=== PATIENT | female | born 1960 | race Caucasian/White ===

== ENCOUNTER 2024-05-08 15:04 | Inpatient (IN) | payer OTHER, MEDICAID ==
[~2024-05-08] VITALS: Ht 167.6 cm; Wt 112.9 kg
[2024-05-08 15:10] VITALS: BP 137/73; PULSE 70; RESP 20; TEMP 37.00296; O2SAT 95
[2024-05-08] MEDS ORDERED: CLOP-31 PO (16:11)
[2024-05-08] MEDS ORDERED: LEVE500T98 MT (16:11)
[2024-05-08] MEDS ORDERED: DOCU-138 MT (16:11)
[2024-05-08] MEDS ORDERED: AMLO5TAB4 MT (16:11)
[2024-05-08] MEDS ORDERED: SENN-362 MT (16:11)
[2024-05-08] MEDS ORDERED: HJ10 IJ (16:11)
[2024-05-08] MEDS ORDERED: ASPI-1497 PO (16:11)
[2024-05-08] MEDS ORDERED: ATOR-2 MT (16:11)
[2024-05-08] MEDS ORDERED: IPRATROPIUM/ALBUTEROL 0.5-3(2.5)MG/3ML NEB HHN PRN (16:15)
[2024-05-08] MEDS ORDERED: DOCUSATE SODIUM 100MG CAPSULE PO PRN (16:15)
[2024-05-08] MEDS ORDERED: DEXTROSE 50% WATER 50ML SYRINGE IV PRN (16:15)
[2024-05-08] MEDS ORDERED: SENNOSIDES 8.6MG TABLET PO PRN (16:15)
[2024-05-08] MEDS ORDERED: ONDANSETRON HCL 4MG/2ML INJ IV PRN (16:15)
[2024-05-08] MEDS ORDERED: CLONIDINE 0.1MG TABLET PO PRN (16:15)
[2024-05-08 16:48] VITALS: BP 137/73; PULSE 70; RESP 20; TEMP 37.0296
[2024-05-08] MEDS: INSULIN LISPRO 100 UNITS/ML SUBCUT SCH (17:00)
[2024-05-08] MEDS: BLOOD SUGAR DIAGNOSTIC STRIP TEST SCH (17:33)
[2024-05-08 20:00] VITALS: BP 136/83; PULSE 70; RESP 18; TEMP 37.00296; O2SAT 94
[2024-05-08] MEDS: LEVETIRACETAM 500MG TABLET PO SCH (21:18)
[2024-05-08] MEDS: ATORVASTATIN CALCIUM 40MG TABLET PO SCH (21:18)
[2024-05-09 06:49] LABS: CHLORIDE 106 mEq/L (98-107); POTASSIUM 3.8 mEq/L (3.5-5.1); SODIUM 140 mEq/L (136-145)
[2024-05-09 06:53] LABS: CALCIUM 9.1 mg/dL (8.7-10.4); CARBON DIOXIDE 24 mEq/L (21-32)
[2024-05-09 06:58] LABS: BASOPHILS % 0.7 % (0.0-2.0); CREATININE 0.7 mg/dL (0.6-1.0); GLUCOSE 113 mg/dL (70-105); HEMATOCRIT. 44.3 % (36.0-48.0); HEMOGLOBIN. 14.8 g/dL (12.0-16.0); LYMPHOCYTES % 24.1 % (20.0-50.0); MEAN CORPUSCULAR HEMOGLOBIN 27.8 pg (28.0-32.0); MEAN CORPUSCULAR HGB CONC 33.3 g/dL (31.0-37.0); MEAN CORPUSCULAR VOLUME 83.3 fL (81.0-99.0); MEAN PLATELET VOLUME 8.4 fl (7.4-10.4); MONOCYTES % 7.9 % (2.0-8.0); NEUTROPHILS % 63.3 % (40.0-76.0); PLATELET 298 x1000/uL (130-400); RED BLOOD CELL COUNT 5.32 mill/uL (4.2-5.4); RED CELL DISTRIBUTION WIDTH 13.5 % (11.6-14.6); UREA NITROGEN BLOOD 14 mg/dL (9-23); WHITE BLOOD COUNT 8.4 x1000/uL (4.5-11.0)
[2024-05-09 07:00] LABS: ALANINE AMINOTRANSFERASE 149 IU/L (10-49); ALBUMIN 3.9 g/dL (3.2-4.8); ASPARTATE AMINOTRANSFERASE 129 IU/L (<34); BILIRUBIN TOTAL 0.7 mg/dL (0.1-1.0); PREALBUMIN 12.4 mg/dl (10.0-40.0); PROTEIN TOTAL 6.7 g/dL (6.0-8.3)
[2024-05-09 08:00] VITALS: BP 139/65; PULSE 60; RESP 17; TEMP 36.114; O2SAT 96
[2024-05-09] MEDS: ASPIRIN 81MG EC TABLET PO SCH (08:03)
[2024-05-09] MEDS: AMLODIPINE 5MG TABLET PO SCH (08:04)
[2024-05-09] MEDS: CLOPIDOGREL 75MG TABLET PO SCH (08:04)
[2024-05-09 20:00] VITALS: BP 148/82; PULSE 70; RESP 19; TEMP 36.61404; O2SAT 96
[2024-05-10 08:00] VITALS: BP 132/70; PULSE 67; RESP 18; TEMP 36.22512; O2SAT 95
[2024-05-10] MEDS: SENNOSIDES 8.6MG TABLET PO SCH (18:57)
[2024-05-10 20:00] VITALS: BP 148/82; PULSE 68; RESP 20; TEMP 36.22512; O2SAT 95
[2024-05-10 23:22] LABS: CLARITY URINE CLEAR (CLEAR); COLOR URINE YELLOW (YELLOW); GLUCOSE URINE NEGATIVE (NEGATIVE); KETONES URINE NEGATIVE (NEGATIVE); LEUKOCYTE ESTERASE URINE NEGATIVE (NEGATIVE); NITRITE URINE NEGATIVE (NEGATIVE); OCCULT BLOOD URINE 2+ (NEGATIVE); PROTEIN URINE NEGATIVE (NEGATIVE); SPECIFIC GRAVITY URINE 1.021 (1.005-1.030)
[2024-05-10 23:55] LABS: BACTERIA URINE TRACE; SQUAMOUS EPITHELIAL CELL URINE FEW /lpf (RARE/1+); WBC URINE NONE SEEN /hpf (0-2)
[2024-05-11 07:34] LABS: CHLORIDE 106 mEq/L (98-107); SODIUM 138 mEq/L (136-145)
[2024-05-11 07:35] LABS: CALCIUM 9.1 mg/dL (8.7-10.4); CARBON DIOXIDE 25 mEq/L (21-32)
[2024-05-11 07:36] LABS: BASOPHILS % 0.7 % (0.0-2.0); EOSINOPHILS % 4.4 % (0.0-5.0); HEMATOCRIT. 42.9 % (36.0-48.0); LYMPHOCYTES % 22.5 % (20.0-50.0); MEAN CORPUSCULAR HEMOGLOBIN 27.6 pg (28.0-32.0); MEAN CORPUSCULAR HGB CONC 32.5 g/dL (31.0-37.0); MEAN PLATELET VOLUME 8.5 fl (7.4-10.4); MONOCYTES % 8.3 % (2.0-8.0); NEUTROPHILS % 64.1 % (40.0-76.0); PLATELET 305 x1000/uL (130-400); RED BLOOD CELL COUNT 5.05 mill/uL (4.2-5.4); RED CELL DISTRIBUTION WIDTH 13.9 % (11.6-14.6); WHITE BLOOD COUNT 9.4 x1000/uL (4.5-11.0)
[2024-05-11 07:40] LABS: CREATININE 0.7 mg/dL (0.6-1.0); GLUCOSE 114 mg/dL (70-105); IRON 62 ug/dL (50-170)
[2024-05-11 07:41] LABS: UREA NITROGEN BLOOD 13 mg/dL (9-23)
[2024-05-11 07:42] LABS: ALANINE AMINOTRANSFERASE 135 IU/L (10-49); ALBUMIN 3.9 g/dL (3.2-4.8); AMMONIA 24 uMol/L (<32); ASPARTATE AMINOTRANSFERASE 87 IU/L (<34); PROTEIN TOTAL 6.7 g/dL (6.0-8.3)
[2024-05-11 07:43] LABS: BILIRUBIN TOTAL 0.9 mg/dL (0.1-1.0); TOTAL IRON BINDING CAPACITY 176 ug/dl (250-425)
[2024-05-11 07:45] LABS: THYROID STIMULATING HORMONE 4.11 uIU/mL (0.55-4.78)
[2024-05-11 07:51] LABS: FERRITIN 429 ng/mL (10-291)
[2024-05-11 07:52] LABS: VITAMIN B12 SERUM 822 pg/mL (211-911)
[2024-05-11 07:55] LABS: FOLIC ACID (FOLATE) SERUM 19.02 ng/mL (>5.38)
[2024-05-11 08:00] VITALS: BP 124/80; PULSE 70; RESP 18; TEMP 36.6696; O2SAT 99
[2024-05-11 20:00] VITALS: BP 138/74; PULSE 67; RESP 19; TEMP 36.61404; O2SAT 94
[2024-05-12 08:00] VITALS: BP 131/72; PULSE 71; RESP 18; TEMP 36.6696; O2SAT 95
[2024-05-12 09:46] VITALS: BP 131/72; PULSE 71; RESP 18; TEMP 36.6696; O2SAT 95
[2024-05-12 20:00] VITALS: BP 138/77; PULSE 82; RESP 18; TEMP 36.61404; O2SAT 94
[2024-05-13 08:00] VITALS: BP 132/84; PULSE 73; RESP 18; TEMP 35.89176; O2SAT 98
[2024-05-13 20:00] VITALS: BP 146/65; PULSE 71; RESP 18; TEMP 36.6696; O2SAT 96
[2024-05-13] MEDS: ERGOCALCIFEROL 50000UNITS CAPSULE PO SCH (22:30)
[2024-05-13] MEDS: LACTULOSE 20G/30ML UDC PO SCH (22:31)
[2024-05-14 08:00] VITALS: BP 136/69; PULSE 69; RESP 18; TEMP 36.44736; O2SAT 95
[2024-05-14] MEDS: LACTULOSE 20G/30ML UDC PO PRN (17:48)
[2024-05-14 20:00] VITALS: BP 145/83; PULSE 75; RESP 18; TEMP 36.16956; O2SAT 95
[2024-05-15 08:00] VITALS: BP 142/84; PULSE 73; RESP 19; TEMP 36.3918; O2SAT 100
[2024-05-15 10:47] LABS: BASOPHILS % 0.3 % (0.0-2.0); HEMATOCRIT. 42.2 % (36.0-48.0); HEMOGLOBIN. 13.8 g/dL (12.0-16.0); LYMPHOCYTES % 14.5 % (20.0-50.0); MEAN CORPUSCULAR HEMOGLOBIN 27.5 pg (28.0-32.0); MEAN CORPUSCULAR HGB CONC 32.6 g/dL (31.0-37.0); MEAN CORPUSCULAR VOLUME 84.3 fL (81.0-99.0); MEAN PLATELET VOLUME 8.5 fl (7.4-10.4); MONOCYTES % 5.1 % (2.0-8.0); NEUTROPHILS % 77.1 % (40.0-76.0); PLATELET 404 x1000/uL (130-400); RED CELL DISTRIBUTION WIDTH 13.8 % (11.6-14.6); WHITE BLOOD COUNT 10.7 x1000/uL (4.5-11.0)
[2024-05-15 11:01] LABS: CHLORIDE 105 mEq/L (98-107); POTASSIUM 3.4 mEq/L (3.5-5.1); SODIUM 138 mEq/L (136-145)
[2024-05-15 11:02] LABS: CALCIUM 9.6 mg/dL (8.7-10.4); CARBON DIOXIDE 24 mEq/L (21-32)
[2024-05-15 11:07] LABS: CREATININE 0.7 mg/dL (0.6-1.0); GLUCOSE 179 mg/dL (70-105); UREA NITROGEN BLOOD 12 mg/dL (9-23)
[2024-05-15] MEDS: POTASSIUM CHLORIDE 20MEQ TABLET SR PO NR (13:20)
[2024-05-15] MEDS: BISACODYL 10MG SUPP PR NR (16:58)
[2024-05-15] MEDS: LACTULOSE 20G/30ML UDC PO SCH (16:58)
[2024-05-15] MEDS: MINERAL OIL ENEMA 133ML PR NR (17:00)
[2024-05-15 20:00] VITALS: BP_SYST 140; BP_SYST 156; BP_DIAS 79; BP_DIAS 86; PULSE 73; PULSE 84; RESP 17; RESP 18; TEMP 36.72516; TEMP 36.89184; O2SAT 95; O2SAT 96
[2024-05-16 08:00] VITALS: BP 133/82; PULSE 66; RESP 18; TEMP 36.16956; O2SAT 95
[2024-05-16 08:33] VITALS: BP 133/82; PULSE 66; RESP 18; TEMP 36.16956; O2SAT 95
[2024-05-16] MEDS: MINERAL OIL ENEMA 133ML PR NR (09:02)
[2024-05-16 16:28] LABS: CARBON DIOXIDE 25 mEq/L (21-32)
[2024-05-16 16:29] LABS: CALCIUM 9.4 mg/dL (8.7-10.4)
[2024-05-16 16:34] LABS: CREATININE 0.7 mg/dL (0.6-1.0); GLUCOSE 100 mg/dL (70-105); UREA NITROGEN BLOOD 10 mg/dL (9-23)
[2024-05-16 17:13] LABS: CHLORIDE 105 mEq/L (98-107); POTASSIUM 4.5 mEq/L (3.5-5.1); SODIUM 138 mEq/L (136-145)
[2024-05-16 20:00] VITALS: BP 91/45; PULSE 74; RESP 17; TEMP 36.61404; O2SAT 96
[2024-05-16] MEDS: POLYETHYLENE GLYCOL 3350 (17GM) 1 DOSE PACK PO SCH (20:54)
[2024-05-17 08:00] VITALS: BP 142/79; PULSE 70; RESP 18; TEMP 36.22512; O2SAT 96
[2024-05-17 20:00] VITALS: BP 132/58; PULSE 79; RESP 19; TEMP 36.61404; O2SAT 97
[2024-05-18 08:00] VITALS: BP 135/67; PULSE 61; RESP 18; TEMP 36.00288; O2SAT 95
[2024-05-18 20:00] VITALS: BP 140/81; PULSE 64; RESP 19; TEMP 36.114; O2SAT 95
[2024-05-19 07:46] LABS: CALCIUM 9.3 mg/dL (8.7-10.4); CARBON DIOXIDE 29 mEq/L (21-32); CHLORIDE 105 mEq/L (98-107); POTASSIUM 3.9 mEq/L (3.5-5.1); SODIUM 138 mEq/L (136-145)
[2024-05-19 07:50] LABS: BASOPHILS % 0.7 % (0.0-2.0); EOSINOPHILS % 4.9 % (0.0-5.0); HEMATOCRIT. 42.5 % (36.0-48.0); HEMOGLOBIN. 14.1 g/dL (12.0-16.0); LYMPHOCYTES % 17.1 % (20.0-50.0); MEAN CORPUSCULAR HEMOGLOBIN 28.1 pg (28.0-32.0); MEAN CORPUSCULAR HGB CONC 33.2 g/dL (31.0-37.0); MEAN CORPUSCULAR VOLUME 84.6 fL (81.0-99.0); MONOCYTES % 6.1 % (2.0-8.0); NEUTROPHILS % 71.2 % (40.0-76.0); PLATELET 391 x1000/uL (130-400); RED BLOOD CELL COUNT 5.02 mill/uL (4.2-5.4); RED CELL DISTRIBUTION WIDTH 13.5 % (11.6-14.6); WHITE BLOOD COUNT 9.5 x1000/uL (4.5-11.0)
[2024-05-19 07:51] LABS: CREATININE 0.7 mg/dL (0.6-1.0); GLUCOSE 111 mg/dL (70-105)
[2024-05-19 07:52] LABS: UREA NITROGEN BLOOD 11 mg/dL (9-23)
[2024-05-19 08:00] VITALS: BP 135/76; PULSE 62; RESP 18; TEMP 36.00288; O2SAT 97
[2024-05-19 20:00] VITALS: BP 131/73; PULSE 63; RESP 17; TEMP 36.44736; O2SAT 96
[2024-05-20 08:00] VITALS: BP 134/67; PULSE 62; RESP 20; TEMP 36.00288; O2SAT 96
[2024-05-20 20:00] VITALS: BP 125/65; PULSE 69; RESP 17; TEMP 36.72516; O2SAT 95
[2024-05-21 08:00] VITALS: BP 132/78; PULSE 63; RESP 18; TEMP 36.3918; O2SAT 95
[2024-05-21 20:00] VITALS: BP 154/85; PULSE 6; RESP 18; TEMP 36.3918; O2SAT 95
[2024-05-22 08:00] VITALS: BP 128/71; PULSE 58; RESP 20; TEMP 36.44736; O2SAT 98
[2024-05-23 08:00] VITALS: BP 129/46; PULSE 77; RESP 20; TEMP 36.28068; O2SAT 97
[2024-05-24 08:00] VITALS: BP 144/79; PULSE 58; RESP 18; TEMP 36.72516; O2SAT 97
[2024-05-24 20:00] VITALS: BP 132/67; PULSE 64; RESP 17; TEMP 36.3918; O2SAT 96
[2024-05-25 06:48] LABS: BASOPHILS % 0.9 % (0.0-2.0); EOSINOPHILS % 5.2 % (0.0-5.0); HEMOGLOBIN. 13.9 g/dL (12.0-16.0); LYMPHOCYTES % 31.5 % (20.0-50.0); MEAN CORPUSCULAR HGB CONC 32.4 g/dL (31.0-37.0); MEAN CORPUSCULAR VOLUME 86.5 fL (81.0-99.0); MEAN PLATELET VOLUME 8.2 fl (7.4-10.4); MONOCYTES % 8.2 % (2.0-8.0); NEUTROPHILS % 54.2 % (40.0-76.0); PLATELET 335 x1000/uL (130-400); RED BLOOD CELL COUNT 4.97 mill/uL (4.2-5.4); RED CELL DISTRIBUTION WIDTH 13.9 % (11.6-14.6); WHITE BLOOD COUNT 7.8 x1000/uL (4.5-11.0)
[2024-05-25 06:50] LABS: CARBON DIOXIDE 27 mEq/L (21-32); CHLORIDE 107 mEq/L (98-107); POTASSIUM 3.6 mEq/L (3.5-5.1); SODIUM 141 mEq/L (136-145)
[2024-05-25 06:51] LABS: CALCIUM 9.3 mg/dL (8.7-10.4)
[2024-05-25 06:56] LABS: CREATININE 0.7 mg/dL (0.6-1.0); GLUCOSE 95 mg/dL (70-105); UREA NITROGEN BLOOD 10 mg/dL (9-23)
[2024-05-25 06:57] LABS: ALANINE AMINOTRANSFERASE 28 IU/L (10-49); ALBUMIN 3.9 g/dL (3.2-4.8); ASPARTATE AMINOTRANSFERASE 28 IU/L (<34)
[2024-05-25 06:58] LABS: BILIRUBIN TOTAL 0.8 mg/dL (0.1-1.0); PROTEIN TOTAL 6.8 g/dL (6.0-8.3)
[2024-05-25 08:00] VITALS: BP 147/81; PULSE 64; RESP 16; TEMP 36.05844; O2SAT 100
[2024-05-25] MEDS: ACETAMINOPHEN 500MG TABLET PO NR (11:49)
[2024-05-25] MEDS: LIDOCAINE 5% PATCH TOP SCH (12:52)
[2024-05-25] MEDS: DICLOFENAC SODIUM 1% GEL 50GM TOP SCH (13:00)
[2024-05-25] MEDS ORDERED: ACETAMINOPHEN 325MG TABLET PO PRN (14:15)
[2024-05-25 20:00] VITALS: BP_SYST 114; BP_SYST 157; BP_DIAS 58; BP_DIAS 86; PULSE 56; PULSE 84; RESP 18; TEMP 36.50292; TEMP 36.61404; O2SAT 97; O2SAT 98
[2024-05-26 08:00] VITALS: BP 127/71; PULSE 77; RESP 20; TEMP 36.44736; O2SAT 100
[2024-05-26 20:00] VITALS: BP 148/73; PULSE 91; RESP 19; TEMP 36.61404; O2SAT 97
[2024-05-27 08:00] VITALS: BP 116/50; PULSE 61; RESP 18; TEMP 36.44736; O2SAT 98
[2024-05-27 20:00] VITALS: BP 135/72; PULSE 60; RESP 20; TEMP 36.50292; O2SAT 99
[2024-05-28 08:00] VITALS: BP 137/93; PULSE 52; RESP 18; TEMP 36.114; O2SAT 96
[2024-05-28 20:00] VITALS: BP 146/77; PULSE 60; RESP 18; TEMP 36.22512; O2SAT 97
[2024-05-29 08:00] VITALS: BP 153/80; PULSE 67; RESP 20; TEMP 36.50292; O2SAT 98
[2024-05-29 09:32] VITALS: RESP 20
[2024-05-29] MEDS ORDERED: DICL100G58 TP (11:17)
[2024-05-29 15:15] VITALS: BP 132/76; PULSE 64; TEMP 97.6; O2SAT 96
[2024-05-30] MEDS ORDERED: ATOR-2 MT (14:02)
[2024-05-30] MEDS ORDERED: AMLO5TAB4 MT (14:02)
[2024-05-30] MEDS ORDERED: ASPI-1497 PO (14:02)
[2024-05-30] MEDS ORDERED: SENN-362 MT (14:02)
[2024-05-30] MEDS ORDERED: DOCU-138 MT (14:02)
[2024-05-30] MEDS ORDERED: LEVE500T98 MT (14:02)
== END 2024-05-29 16:10 | disposition home health service (06) | DRG 45 ==
PROVIDERS: ADMIT Physical Medicine & Rehabilitation Spinal Cord Injury Medicine; ATTEND Family Medicine Adult Medicine
DX: I63.532 Cerebral infarction due to unspecified occlusion or stenosis of left posterior cerebral artery (principal); J96.90 Respiratory failure, unspecified, unspecified whether with hypoxia or hypercapnia; G93.41 Metabolic encephalopathy; J81.1 Chronic pulmonary edema; I69.351 Hemiplegia and hemiparesis following cerebral infarction affecting right dominant side; E11.9 Type 2 diabetes mellitus without complications; E78.5 Hyperlipidemia, unspecified; E66.01 Morbid (severe) obesity due to excess calories; G47.33 Obstructive sleep apnea (adult) (pediatric); R13.10 Dysphagia, unspecified; I10 Essential (primary) hypertension; E55.9 Vitamin D deficiency, unspecified; E87.6 Hypokalemia; R74.01 Elevation of levels of liver transaminase levels; K59.00 Constipation, unspecified; R53.81 Other malaise; Z79.01 Long term (current) use of anticoagulants; Z79.899 Other long term (current) drug therapy; Z68.41 Body mass index [BMI] 40.0-44.9, adult; I69.391 Dysphagia following cerebral infarction; I69.322 Dysarthria following cerebral infarction
CPT/HCPCS: 36415; 73560; 80048; 80053; 81003; 82140; 82306; 82607; 82728; 82746; 82962; 83036; 83540; 83550; 84134; 84443; 85025; 92523; 92610; 93970; 97110; 97112; 97116; 97150; 97162; 97166; 97530; 97535; 97542; A6261; J1815